=== PATIENT | female | born 1945 | race Caucasian/White ===

== ENCOUNTER → 2016-09-27 | Outpatient (CLI) | payer OTHER ==
--- NOTE | 2016-09-27 12:36 | DX ---
Chest, Two Views at 1108 hours History: J 18.9, pneumonia. Comparison: September 12, 2016 Findings: Cardiac silhouette is within normal range. Interval improvement in right lower lobe opacity since recent study consistent with resolving pneumonia with some residual patchy opacities noted in both lower lobes. Surgical clips in the left breast. Tortuous thoracic aorta. No pleural effusion or pneumothorax. Mild stable midthoracic compression fracture. IMPRESSION: 1. Resolving right lower lobe pneumonia. 2. Recommend follow-up in one month. 3. Mild stable midthoracic compression fracture. Consider DEXA bone scan evaluation for osteoporosis if clinically indicated.
== END ==
LOC: FIMAGING 11:03
PROVIDERS: ATTEND Internal Medicine
DX: J18.9 Pneumonia, unspecified organism (principal)

== ENCOUNTER → 2016-10-29 | Outpatient (CLI) | payer OTHER | LOC: BMCIMAGING 14:17 | PROVIDERS: ATTEND Internal Medicine | DX: J18.9 Pneumonia, unspecified organism (principal) ==

== ENCOUNTER → 2017-03-08 | Outpatient (CLI) | payer OTHER | LOC: FIMAGING 10:33 | PROVIDERS: ATTEND Internal Medicine | DX: Z12.31 Encounter for screening mammogram for malignant neoplasm of breast (principal); Z85.3 Personal history of malignant neoplasm of breast; Z80.3 Family history of malignant neoplasm of breast | CPT/HCPCS: G0202 ==

== ENCOUNTER → 2017-08-17 | Outpatient (CLI) | payer OTHER | LOC: FIMAGING 09:31 | PROVIDERS: ATTEND Internal Medicine Hematology & Oncology | DX: Z13.820 Encounter for screening for osteoporosis (principal); M85.88 Other specified disorders of bone density and structure, other site; Z82.62 Family history of osteoporosis ==

== ENCOUNTER → 2018-07-02 | Outpatient (CLI) | payer OTHER | LOC: FIMAGING 10:52 | PROVIDERS: ATTEND Internal Medicine Hematology & Oncology | DX: N64.59 Other signs and symptoms in breast (principal); Z85.3 Personal history of malignant neoplasm of breast ==

== ENCOUNTER 2019-01-09 05:50 | Inpatient (IN) | payer OTHER ==
--- NOTE | 2018-12-24 10:01 | ASMTCMCOM ---
CM Note CM Note Notes: Received a call from Dr. Carty's office, #[phone]. Patient lives alone and has multiple stairs at home. She feels rehab may be the best option for her post surgery. Patient and dtrs have already looked into [facility]. Will initiate referral process when patient gets to floor after surgery. CM will follow. Plan: [facility]ely [facility] - [facility] Date Signed: 12/24/2018 10:01 AM Electronically Signed By:Africa Pagan RN
--- NOTE | 2019-01-08 20:57 | GHP ---
[f rep st] PREOP HISTORY AND PHYSICAL DATE OF PLANNED PROCEDURE: 01/09/2019 ADMISSION DIAGNOSIS: Osteoarthritis, right hip. PLANNED PROCEDURE: Right total hip arthroplasty through an anterior approach. HISTORY OF PRESENT ILLNESS: The patient is a 73-year-old female who has failed conservative manageme nt, and has severe osteoarthritis of the right hip. Decision has been made to proceed with a total h ip arthroplasty through an anterior approach. PRIOR MEDICAL HISTORY: Arthritis, cancer, depression, recurrent urinary tract infections. PAST SURGICAL HISTORY: Total knee arthroplasty in 2011 and 2015. MEDICATIONS: Metformin 1000 mg b.i.d., pravastatin 10 mg, trazodone 50 mg, zolpidem 5 mg. ALLERGIES: No known drug allergies. SOCIAL HISTORY: Former smoker. Retired. Occasional alcohol use. Lives alone here in town. REVIEW OF SYSTEMS: Negative for chest pain or shortness of breath. Otherwise, review of systems unr emarkable. PHYSICAL EXAM: VITAL SIGNS: She is 5 feet 8 inches tall, weighs 180 pounds. Blood pressure is 116/ 62, heart rate is 68, respiratory rate 16 on room air. GENERAL: Alert and oriented x3. HEENT: Nor mocephalic, atraumatic. Extraocular muscles are intact. NECK: Supple. There is no lymphadenopathy . No JVD. CHEST: Clear to auscultation. CARDIOVASCULAR: Regular rate and rhythm. ABDOMEN: Soft , nontender, nondistended. EXTREMITIES: Focusing on the right hip leg, lengths are approximately eq ual. She has full extension of the hip, 100 degrees of flexion, 10 degrees of internal rotation with groin pain, 20 degrees of external rotation, 20 degrees of abduction. Calf is soft. She has 5/5 mo tor strength throughout the right lower extremity. 2+ dorsalis pedis and posterior tibial pulses. IMAGING STUDIES: X-rays AP, pelvis and frog-leg lateral show severe osteoarthritis of the right hip. ASSESSMENT: Severe osteoarthritis, right hip. PLAN: I recommend proceeding with a total hip arthroplasty through an anterior approach. Risks and benefits including a 1% to 2% dislocation rate, possibility of blood clots and infection were all dis cussed. She understands these risks and wished to proceed. Preoperative paperwork was completed. Konstantin venegas will plan on surgery Saturday at [facility]. /[id number]/MODL
[2019-01-09] MEDS ORDERED: ceFAZolin 2 GM/DEXTROSE 100 ML IV ONE (06:05)
[2019-01-09] MEDS ORDERED: LR 1,000 ML IV ONE (06:27)
--- NOTE | 2019-01-09 06:51 | PDHPUP ---
History & Physical Update H&P update statement: This history and physical update is based on an assessment of the patient which was completed after admission or registration (within 24 hours), but prior to the surgery/procedure. H&P update: H&P reviewed & patient examined, no change in patient's condition since H&P completed
[2019-01-09] MEDS ORDERED: BUPIVACAINE/EPI 0.5% 30 ML SDV ONE (07:01)
[2019-01-09] MEDS ORDERED: MIDAZOLAM 2 MG/2 ML VIAL IVP ONE (07:03)
--- NOTE | 2019-01-09 07:03 | PDANEPAE ---
ANE History of Present Illness hip pain ANE Past Medical History - Cardiovascular History Hx Hypertension: No Hx Arrhythmias: No Hx Chest Pain: No Hx Coronary Artery / Peripheral Vascular Disease: No Hx CHF / Valvular Disease: No Hx Palpitations: No Cardiovascular History Comment: HL - Pulmonary History Hx COPD: No Hx Asthma/Reactive Airway Disease: No Hx Recent Upper Respiratory Infection: No Hx Oxygen in Use at Home: No Hx Sleep Apnea: Yes Sleep Apnea Screening Result - Last Documented: Positive Pulmonary History Comment: wing positive uses cpap- instructed pt to bring to hospital - Neurologic History Hx Cerebrovascular Accident: No Hx Seizures: No Hx Dementia: No - Endocrine History Hx Diabetes: Yes Hypothyroid: No Hyperthyroid: No Obesity: yes, mild Endocrine History Comment: pre-diabetic: on metformin - Renal History Hx Renal Disorders: No - Liver History Hx Hepatic Disorders: No - Neurological & Psychiatric Hx Hx Neurological and Psychiatric Disorders: Yes Neurological / Psychiatric History Comment: insomnia. anxiety. depression - Cancer History Hx Cancer: Yes Cancer History Comment: breast ca in 2012 with lumpectomy. 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 left breast lumpectomy with shey 02/19/13. left tka with steven. 10/09/11. RTKA. breast biopsy 2018 ANE Review of Systems Review of systems is: negative Review of Systems: - Exercise capacity METS (RN): 4 METS ANE Patient History - Allergies Allergies/Adverse Reactions: atorvastatin calcium [From Lipitor] Allergy (Severe, Verified 01/07/19 10:28) MUSCLE CRAMPING - Home Medications Home medications: home medication list seen and reviewed Home Medications: Ergocalciferol [Vitamin D2 (*)] 50,000 unit PO HE 01/01/19 [Last Taken 12/31/18] Fluticasone Nasal [Flonase Nasal [place] (RX)] 1 sprays NASAL DAILY PRN 01/01/19 [ Last Taken 01/09/19] LORazepam [Ativan (*)] 0.5 mg PO DAILY PRN 01/01/19 [Last Taken 01/08/19] Meloxicam 7.5 mg PO BID 01/01/19 [Last Taken 01/06/19] Vortioxetine Hydrobromide [Brintellix] 10 mg PO DAILY 01/01/19 [Last Taken 01/08] Zolpidem Tartrate [Ambien 5MG (*)] 5 mg PO HS 01/01/19 [Last Taken 01/07/19] traZODone [traZODONE 50MG (*)] 200 mg PO HS 01/01/19 [Last Taken 01/08/19] IMODIUM A-D 01/09/19 [Last Taken 01/09/19 05:00] - NPO status NPO Status: no food or drink >8 hours NPO Since - Liquids (Date): 01/09/19 NPO Since - Liquids (Time): 05:00 NPO Since - Solids (Date): 01/08/19 NPO Since - Solids (Time): 22:00 - Anes Hx Anes Hx: no prior problems - Smoking Hx Smoking Status: Former smoker - Alcohol Use Alcohol Use: None - Family Anes Hx Family Anes Hx: none Family Hx Anesthesia Complications: none ANE Labs/Vital Signs - Vital Signs Blood Pressure: 128/63 Heart Rate: 80 Respiratory Rate: 15 O2 Sat (%): 93 Height: 170.18 cm Weight: 88.451 kg ANE Physical Exam - Airway Neck exam: FROM Mallampati Score: Class 2 Mouth exam: normal dental/mouth exam - Pulmonary Pulmonary: no respiratory distress, clear to auscultation - Cardiovascular Cardiovascular: regular rate and rhythym, no murmur, rub, or gallop - ASA Status ASA Status: III ANE Anesthesia Plan Anesthesia Plan: spinal
[2019-01-09] MEDS ORDERED: PROPOFOL/EMULSION 500 MG/50 ML BOTTLE IV ONE (07:05)
[2019-01-09] MEDS ORDERED: BUPIVACAINE/DEXTROSE 7.5MG/ML 2 ML SPINAL AMP SP ONE (07:07)
[2019-01-09] MEDS ORDERED: ePHEDrine SULFATE 25 MG/5 ML SYR ONE (08:29)
[2019-01-09] MEDS ORDERED: PHENYLEPHRINE HCL 100 MCG/ML SYR ONE (08:29)
[2019-01-09] MEDS ORDERED: fentaNYL 100 MCG/2 ML INJ IVP PRN (08:37)
[2019-01-09] MEDS ORDERED: LR 500 ML IV PRN (08:37)
[2019-01-09] MEDS ORDERED: ONDANSETRON 4 MG/2 ML VIAL IVP PRN ×2 (08:37→08:46)
[2019-01-09] MEDS ORDERED: NALOXONE HCL 0.4 MG/ML INJ IVP PRN (08:37)
[2019-01-09] MEDS ORDERED: LABETALOL HCL 5 MG/ML 20 ML MDV IVP PRN (08:37)
--- NOTE | 2019-01-09 08:37 | POSTANESTH ---
Post Anesthetic Evaluation Cardiovascular Status: Normal, Stable Respiratory Status: Normal, Stable Level of Consciousness/Mental Status: Can Participate in Eval Pain Control: Adequate, Prn Tx Ordered Nausea/Vomiting Control: Adequate, Prn Tx Ordered Complications Possibly Related to Anesthesia: None Noted
[2019-01-09] MEDS ORDERED: PROPOFOL 200 MG/20 ML VIAL ONE (08:40)
[2019-01-09] MEDS ORDERED: KETOROLAC 30 MG/1 ML SDV ONE (08:41)
[2019-01-09] MEDS ORDERED: BISACODYL 10 MG SUPP PR PRN (08:46)
[2019-01-09] MEDS ORDERED: ONDANSETRON DISINTEGRATING 4 MG TAB PO PRN (08:46)
[2019-01-09] MEDS ORDERED: PROMETHAZINE HCL 25 MG/ML INJ IVP PRN (08:46)
[2019-01-09] MEDS ORDERED: LACTULOSE 20 GM/30 ML UDCUP PO PRN (08:46)
[2019-01-09] MEDS ORDERED: POLYETHYLENE GLYCOL 3350 17 GM PKT PO PRN (08:46)
[2019-01-09] MEDS ORDERED: DIPHENOXYLATE/ATROPINE LOMOTIL 1 TAB PO PRN (08:46)
[2019-01-09] MEDS ORDERED: PROMETHAZINE HCL 25 MG SUPPR PR PRN (08:46)
[2019-01-09] MEDS ORDERED: METOCLOPRAMIDE 10 MG/2 ML VIAL IVP PRN (08:46)
[2019-01-09] MEDS ORDERED: diphenhydrAMINE 25 MG CAP PO PRN (08:46)
[2019-01-09] MEDS ORDERED: CYCLOBENZAPRINE 10 MG TAB PO PRN (08:46)
[2019-01-09] MEDS ORDERED: MAGNESIUM HYDROXIDE 30 ML UDCUP PO PRN (08:46)
[2019-01-09] MEDS ORDERED: LORazepam 0.5 MG TAB PO PRN (08:53)
--- NOTE | 2019-01-09 08:55 | POSTOPPROG ---
Post Op Note Date of Operation: 01/09/19 Surgeon: Byron Carty Fire Pot Operator: gosia connelly Anesthesiologist: Lisseth Anesthesia: Spinal Pre-op Diagnosis: OA RT hip Post-op Diagnosis: same Procedure: RT LAUREN via ant approach Findings: severe OA Inf/Abcess present in the surg proc area at time of surgery?: No EBL: 100-500 (200 ml) Complications: none
[2019-01-09] MEDS ORDERED: LR 1,000 ML IV SCH (09:00)
--- NOTE | 2019-01-09 09:12 | GOP ---
[f rep st] OPERATIVE REPORT DATE OF OPERATION: 01/09/2019 SURGEON: Byron Carty MD FLORAL ARRANGER: Garret Michelle. ANESTHESIA: Spinal. ANESTHESIOLOGIST: Dr. Montanez. PREOPERATIVE DIAGNOSIS: Osteoarthritis, right hip. POSTOPERATIVE DIAGNOSIS: Osteoarthritis, right hip. PROCEDURE PERFORMED: Right total hip arthroplasty through an anterior approach. FINDINGS: ESTIMATED BLOOD LOSS: 200 mL. INDICATIONS: The patient is a 73-year-old female with worsening right hip pain. Decision made to pr oceed with a total hip arthroplasty through an anterior approach. DESCRIPTION OF PROCEDURE: After an appropriate informed consent was obtained, the patient was taken to the operating room and placed supine on the operating table. Time-out was performed. Patient was identified, correct site was identified, matched with the radiographs available in the room. Follow ing a spinal anesthetic, she was positioned on the OR table with the right leg supported by the arch table, left leg supported in a well-padded well leg neff. We brought in fluoroscopy and templated off initial imaging, which showed leg lengths to be equal. Right hip was then prepped and draped in the usual sterile fashion. I made a standard anterior incision. Bleeding was controlled with electr ocautery. The fascia overlying the TFL was incised and bluntly dissected into the anterior interval, identifying the femoral circumflex vessels and cauterizing them with the Aquamantys device. Then, u sing a Mejias elevator, I elevated the soft tissues off the anterior aspect of the hip capsule, placed retractors around the superior and inferior aspect of the hip capsule and excised the anterior hip ca psule. Using an oscillating saw, I made a femoral neck cut and removed the head and neck. I placed a retractor on the superior and inferior aspect of the acetabulum and removed remaining labrum, as we ll as superior bone spurs. We then measured the head to approximately 53 mm and started reaming at a 52. Reamed up sequentially to a 58 reamer, which gave us good remaining medial wall and stability o f the reamer. We then trialed a 58 and placed our final 58 cup, tapped in place, tapped our neutral liner and locked it in place. We then turned our attention to the femur. Externally rotated the fem ur to 90 degrees, removed remaining posterior capsule and bone on the femoral neck. We then extended the hip to the floor and adducted 30 degrees. Using our femoral canal finding device, entered the f emoral canal and broached up to a size 5 with good rotational stability. We then reduced the hip, tr ialing a 0 and a -2.5 mm head. The -2.5 mm head gave us better judaism of leg lengths. We confi rmed this with an AP fluoroscopic image. We then removed the trial implants, irrigated the canal and placed our final implant, tapping it in place and reducing the hip a final time. Final imaging was obtained which showed judaism of leg lengths, good positioning of the cup and stem. The wound wa s irrigated. The fascia overlying the TFL was closed with 0 Vicryl. I instilled 30 mL of 0.5% Fabiola ine with epinephrine into the joint capsule and around the surrounding tissues. Superficial layers c losed with 2-0 Vicryl. Skin was closed with a 3-0 Quill stitch in a subcuticular fashion. Steri-Str ips were applied to the skin. A sterile occlusive dressing was applied. The patient was awakened fr om anesthesia and taken to the recovery room in satisfactory condition. There were no immediate intr aoperative complications. Garret Michelle's assistance was required throughout the entire case. COMPLICATIONS: None. DRAINS: None. IMPLANTS USED: A Fan Trident II size 58 acetabular shell with a neutral poly liner, a size 5 Acc olate II 127-degree femoral stem with a -2.5 mm ceramic head. /[id number]/MODL
--- NOTE | 2019-01-09 11:39 | PDMN ---
Medical Necessity Medical necessity: [facility] [place] [place]PT only OP: R LAUREN AUTH #[id number] FOR CPT 61585 INPT
[2019-01-09] MEDS: SENNOSIDES/DOCUSATE SODIUM TAB PO SCH ×2 (11:53→22:13)
[2019-01-09] MEDS: KETOROLAC 15 MG/1 ML SDV IVP SCH ×2 (12:07→17:40)
[2019-01-09] MEDS: Vortioxetine Hydrobromide [Trintellix] 10 MG PO SCH (14:36)
[2019-01-09] MEDS: Vortioxetine Hydrobromide [Trintellix] 5 MG PO SCH (14:38)
[2019-01-09] MEDS: ACETAMINOPHEN 325 MG TAB PO SCH ×2 (15:12→21:25)
[2019-01-09] MEDS: ceFAZolin 2 GM/DEXTROSE 100 ML IV SCH ×2 (15:15→21:25)
--- NOTE | 2019-01-09 15:19 | SOAPPROG ---
SOAP Progress Note Assessment/Plan: Assessment: s/p right LAUERN, anterior approach - procedure earlier today Plan: Begin d/c planning - patient states she will be going to [facility] Continue VTE ppx - SCDs, CATHERINE hose, Xarelto x 21 days Continue oral pain medication - Tylenol, Flexeril, Celebrex, Oxycodone Continue PT/OT efforts - anterior LAUREN precautions, WBAT Subjective: Patient states she has pain primarily in the right buttock, not so much in the groin region. She denies pain, numbness or tingling radiating down the lower extremities. Otherwise she is feeling ok. Patient reports that she will be going to SNF once she is discharged. Patient denies SOB, CP, fever, chills. Objective: Vital Signs Temp Pulse Resp BP Pulse Ox 37.0 C 85 17 110/57 L 95 01/09/19 15:08 01/09/19 15:08 01/09/19 15:08 01/09/19 15:08 01/09/19 15:08 01/08/19 01/09/19 01/10/19 05:59 05:59 05:59 Intake Total 550 Output Total 150 Balance 400 Patient resting comfortably in bed, no acute distress. RLE: Wound dressings are clean, dry and intact. Skin intact, no signs of infection. Tenderness over the gluteus jose and medius muscles. Lower leg compartments are soft and nontender. She can actively DF and PF right foot and great toe against resistance. Grossly NVI distally. ICD10 Worksheet Patient Problems: Problems Problem Status Onset Unilateral primary osteoarthritis, right hip Acute Osteoarthritis, knee Acute
[2019-01-09] MEDS: metFORMIN HCL 500 MG TAB PO SCH (17:40)
[2019-01-09] MEDS: oxyCODONE IR 5 MG TAB PO PRN (21:25)
[2019-01-09] MEDS: TEMAZEPAM 15 MG CAP PO PRN (22:13)
[2019-01-09] MEDS: traZODone 50 MG TAB PO SCH (22:13)
[2019-01-09] MEDS: FAMOTIDINE 20 MG TAB PO SCH (22:14)
[2019-01-10] MEDS: KETOROLAC 15 MG/1 ML SDV IVP SCH ×2 (00:05→06:17)
[2019-01-10] MEDS: ACETAMINOPHEN 325 MG TAB PO SCH ×4 (03:30→22:48)
[2019-01-10] MEDS: metFORMIN HCL 500 MG TAB PO SCH ×2 (07:59→17:36)
[2019-01-10] MEDS: SENNOSIDES/DOCUSATE SODIUM TAB PO SCH ×2 (08:03→22:49)
[2019-01-10] MEDS: FAMOTIDINE 20 MG TAB PO SCH ×2 (08:57→22:48)
[2019-01-10] MEDS: RIVAROXABAN 10 MG TAB PO SCH (08:57)
[2019-01-10] MEDS: Vortioxetine Hydrobromide [Trintellix] 5 MG PO SCH (08:58)
[2019-01-10] MEDS: Vortioxetine Hydrobromide [Trintellix] 10 MG PO SCH (08:58)
--- NOTE | 2019-01-10 10:27 | SOAPPROG ---
SOGINGER Progress Note Assessment/Plan: Assessment: Plan: 01/10/19 10:26 POD # 1 RT LAUREN PT/OT xarelto x 21 days Subjective: feeling good slept o/n pain controlled Objective: dressing c/d/i calf soft leg lengths equal 5/5 df/pf Vital Signs Temp Pulse Resp BP Pulse Ox 36.8 C 79 16 113/75 91 L 01/10/19 08:11 01/10/19 08:11 01/10/19 08:11 01/10/19 08:11 01/10/19 08:11 Laboratory Results 01/10/19 05:07 01/09/19 01/10/19 01/11/19 05:59 05:59 05:59 Intake Total 1450 Output Total 550 Balance 900 ICD10 Worksheet Patient Problems: Problems Problem Status Onset Unilateral primary osteoarthritis, right hip Acute Osteoarthritis, knee Acute
--- NOTE | 2019-01-10 15:22 | ASMTCMCOM ---
CM Note CM Note Notes: Referral sent to [facility] today. CM will follow. Date Signed: 01/10/2019 03:21 PM Electronically Signed By:Sabi Garcia LCSW
[2019-01-10] MEDS: TEMAZEPAM 15 MG CAP PO PRN (22:47)
[2019-01-10] MEDS: traZODone 50 MG TAB PO SCH (22:47)
[2019-01-10] MEDS: oxyCODONE IR 5 MG TAB PO PRN (22:47)
[2019-01-11] MEDS: ACETAMINOPHEN 325 MG TAB PO SCH ×4 (03:11→21:54)
--- NOTE | 2019-01-11 08:24 | SOAPPROG ---
PARKER Progress Note Assessment/Plan: Assessment: Plan: 01/10/19 10:26 POD # 1 RT LAUREN PT/OT xarelto x 21 days 01/11/19 08:23 POD#2 LAUREN RT doing well with PT SNF vs home with HH PT Saturday Subjective: doing well, pain controlled working with PT Objective: dressingh changed leg lengths equal calf soft Vital Signs Temp Pulse Resp BP Pulse Ox 37.3 C 98 17 138/66 H 95 01/11/19 08:00 01/11/19 08:00 01/11/19 08:00 01/11/19 08:00 01/11/19 08:00 Laboratory Results 01/11/19 05:00 01/10/19 01/11/19 01/12/19 05:59 05:59 05:59 Intake Total 1450 400 Output Total 550 Balance 900 400 ICD10 Worksheet Patient Problems: Problems Problem Status Onset Unilateral primary osteoarthritis, right hip Acute Osteoarthritis, knee Acute
[2019-01-11] MEDS: metFORMIN HCL 500 MG TAB PO SCH ×2 (09:35→17:34)
[2019-01-11] MEDS: RIVAROXABAN 10 MG TAB PO SCH (09:36)
[2019-01-11] MEDS: Vortioxetine Hydrobromide [Trintellix] 5 MG PO SCH (09:36)
[2019-01-11] MEDS: FAMOTIDINE 20 MG TAB PO SCH ×2 (09:36→21:54)
[2019-01-11] MEDS: Vortioxetine Hydrobromide [Trintellix] 10 MG PO SCH (09:36)
[2019-01-11] MEDS: SENNOSIDES/DOCUSATE SODIUM TAB PO SCH ×2 (10:10→21:55)
--- NOTE | 2019-01-11 10:43 | ASMTCMCOM ---
MARI Note CM Note Notes: Patient is discharging tomorrow and would like to go before noon so her daughter can accompany her before she leaves in the afternoon. Spoke with [facility] admissions and requested a 10:30 AM discharge to their facility. They will get back to me today to let me know if they can accomodate. CM will follow. Date Signed: 01/11/2019 10:42 AM Electronically Signed By:Sabi Garcia LCSW
--- NOTE | 2019-01-11 13:16 | ASMTCMCOM ---
CM Note CM Note Notes: [facility] insurance auth for the patient yet, though it has been started. They have made a note that they will try to get it in the morning on Saturday so the patient can discharge in the morning if possible. CM will need to check in early Saturday to facilitate an early discharge. CM will follow. Date Signed: 01/11/2019 01:14 PM Electronically Signed By:Sabi Garcia LCSW
[2019-01-11] MEDS: TEMAZEPAM 15 MG CAP PO PRN (21:54)
[2019-01-11] MEDS: traZODone 50 MG TAB PO SCH (21:54)
[2019-01-12] MEDS: ACETAMINOPHEN 325 MG TAB PO SCH ×2 (03:26→08:27)
[2019-01-12 08:20] VITALS: BP 112/61
[2019-01-12] MEDS: metFORMIN HCL 500 MG TAB PO SCH (08:25)
[2019-01-12] MEDS: SENNOSIDES/DOCUSATE SODIUM TAB PO SCH (08:28)
[2019-01-12] MEDS: FAMOTIDINE 20 MG TAB PO SCH (08:29)
[2019-01-12] MEDS: Vortioxetine Hydrobromide [Trintellix] 10 MG PO SCH (08:30)
[2019-01-12] MEDS: RIVAROXABAN 10 MG TAB PO SCH (08:30)
[2019-01-12] MEDS: Vortioxetine Hydrobromide [Trintellix] 5 MG PO SCH (08:32)
--- NOTE | 2019-01-12 09:58 | SOAPPROG ---
SOAP Progress Note Assessment/Plan: Assessment: s/p right LAUREN, anterior approach - POD 3 Plan: Continue d/c planning - patient states she will be going to [facility], waiting for insurance authorization Continue VTE ppx - SCDs, CATHERINE hose, Xarelto x 21 days Continue oral pain medication - Tylenol, Celebrex, Oxycodone Continue PT/OT efforts - anterior LAUREN precautions, WBAT Subjective: Patient states she is feeling very good, she has no significant pain at this time. She is waiting for her insurance to authorize the SNF. She denies SOB, CP , fever, chills. No new major complaints at this time. Objective: Vital Signs Temp Pulse Resp BP Pulse Ox 36.8 C 93 16 112/61 93 01/12/19 08:00 01/12/19 08:00 01/12/19 08:00 01/12/19 08:00 01/12/19 08:00 Laboratory Results 01/11/19 05:00 01/11/19 01/12/19 01/13/19 05:59 05:59 05:59 Intake Total 400 1250 425 Balance 400 1250 425 Patient sitting comfortably in her chair, no acute distress. RLE: Ecchymosis noted about the anterolateral aspect of the right hip. Skin intact. No signs of infection. Mepilex is clean, dry and intact. Lower leg compartments are soft and nontender. Negative Homans sign bilaterally. She can actively DF and PF her right foot and great toe against resistance. Grossly NVI distally. ICD10 Worksheet Patient Problems: Problems Problem Status Onset Unilateral primary osteoarthritis, right hip Acute Osteoarthritis, knee Acute
--- NOTE | 2019-01-12 10:05 | PDIAF ---
- Diagnosis Diagnosis: Right hip DJD Code Status: Full Code - Medication Management Discharge Medications: electronically signed and located in the Home Medication List. - Orders Services needed: Physical Therapy, Occupational Therapy Diet Recommendation: no restrictions on diet Diet Texture: Regular Texture Diet Additional Instructions: WBAT on right lower extremity Anterior total hip precautions Oxycodone, Tylenol for pain, Xarelto x 21 days for VTE ppx Keep wound dressings clean, dry and intact. Keep dressing covered while showering. Do not submerge/take a bath Follow up in 2-[address] Carty's office - Follow Up Care Current Providers and Referrals: Jes Vigil MD [Primary Care Provider] - Byron Carty MD [Medical Doctor] - follow up in 2 weeks (Follow up in 2-[address] Carty)
--- NOTE | 2019-01-12 10:50 | PDDCSUM ---
Discharge Summary Discharge Summary: ADMISSION DIAGNOSIS: Right hip severe degenerative arthritis DISCHARGE DIAGNOSIS: Right hip severe degenerative arthritis OPERATION PERFORMED: January 09, 2019 Right total hip arthroplasty, anterior approach POSTOPERATIVE COMPLICATIONS: None CONDITION ON DISCHARGE: Improved HPI: The patient is a 73 year old female who has end-stage arthritis of her right hip. Clinical and radiographic features are consistent with this. Patient has failed attempts at conservative management, therefore, recommended operative right total hip replacement. DESCRIPTION OF HOSPITAL COURSE: The patient was admitted to the hospital on the morning of surgery and underwent a right total hip arthroplasty, anterior approach. Postoperatively, patient was treated with multimodal DVT prophylaxis, including Xarelto, SCDs and CATHERINE hose. Patient was seen by PT and made good progress with ambulation and stairs. The patients most recent H&H was 11.3/ 34.8. Patient was able to void spontaneously. At the time of discharge, patient was afebrile, wound was clean and dry. Patient is walking with a walker. DISPOSITION: The patient is discharged to [facility]. Patient may progress to full weightbearing on the right lower extremity as tolerated. She will continue to take Xarelto until she is 21 days post-operative. Patient may continue to take Tylenol and oxycodone for pain control and Zofran for nausea. The patient will be seen by Dr. Escobedo office in approximately 2-3 weeks. If there are any problems, patient is to call Dr. Escobedo office.
--- NOTE | 2019-01-12 14:01 | ASMTCMCOM ---
CM Note CM Note Notes: [facility] for [facility]. Orders sent in [employer]. KIKE Bunch called report. Pt was picked up by [facility] at 11:15. Date Signed: 01/12/2019 01:59 PM Electronically Signed By:PEDRITO Marie
--- NOTE | 2019-01-12 14:46 | ASDISCHSUM ---
Discharge Information Plan Status:SNF Medically Cleared to Leave: Discharge Date:01/12/2019 11:24 AM CM D/C Disposition: ADT D/C Disposition:Nursing Home Facility Projected Discharge Date:01/12/2019 11:00 AM Transportation at D/C: Discharge Delay Reason: Follow-Up Date:01/12/2019 11:00 AM Discharge Slot: Final Diagnosis: Placement Information Referral Type:*Long-Term/SNF Referral ID:[id number] Provider Name:[facility] Address 1:[address] Address 2: City:[place] Selection Factors: State:[place] Patient Contact Information Contact Name:GABRIELLA Relationship:Daughter Address: Work Phone: [facility] Phone: [facility]/Zip Code:[place] Email: Financial Information Financial Class:Medicare Advantage Plans Primary Plan Desc:[facility] ADVANTAGE PLANS Primary Plan Number:[id number] Secondary Plan Desc: Secondary Plan Number: Assessment Information [facility] CM Progress Note CM Note CM Note Notes: Received a call from Dr. Carty's office, #[phone]. Patient lives alone and has multiple stairs at home. She feels rehab may be the best option for her post surgery. Patient and dtrs have already looked into [facility]. Will initiate referral process when patient gets to floor after surgery. CM will follow. Plan: Likely [facility] - [facility] Date Signed: 12/24/2018 10:01 AM Electronically Signed By:Africa Pagan RN [facility] CM Progress Note CM Note CM Note Notes: Referral sent to [facility] today. CM will follow. Date Signed: 01/10/2019 03:21 PM Electronically Signed By:Sabi Garcia LCSW [facility] CM Progress Note CM Note CM Note Notes: Patient is discharging tomorrow and would like to go before noon so her daughter can accompany her before she leaves in the afternoon. Spoke with [facility] admissions and requested a 10:30 AM discharge to their facility. They will get back to me today to let me know if they can accomodate. CM will follow. Date Signed: 01/11/2019 10:42 AM Electronically Signed By:Sabi Garcia LCSW [facility] CM Progress Note CM Note CM Note Notes: Spoke with [facility] who states they have not gotten insurance auth for the patient yet, though it has been started. They have made a note that they will try to get it in the morning on Saturday so the patient can discharge in the morning if possible. CM will need to check in early Saturday to facilitate an early discharge. CM will follow. Date Signed: 01/11/2019 01:14 PM Electronically Signed By:Sabi Garcia LCSW [facility] CM Progress Note CM Note CM Note Notes: This morning [facility] received insurance auth and pt is medically stable for d/c. Orders sent in [employer]. KIKE Bunch called report. Pt was picked up by [facility] at 11:15. Date Signed: 01/12/2019 01:59 PM Electronically Signed By:PEDRITO Marie Intervention Information Intervention Type:*IM-Signed Date of Service:01/12/2019 09:49 AM Patient Type:Inpatient Staff Member:Adelaida Carlson Hours: Discipline: Severity: Comment:
== END 2019-01-12 11:24 | DRG 470 ==
LOC: F3N 05:50
PROVIDERS: ADMIT Orthopaedic Surgery; ATTEND Orthopaedic Surgery
PROC: 0SR904A Replacement of Right Hip Joint with Ceramic on Polyethylene Synthetic Substitute, Uncemented, Open Approach (ICD-10-PCS; principal; 2019-01-09 07:15)
DX: M16.11 Unilateral primary osteoarthritis, right hip (principal); E55.9 Vitamin D deficiency, unspecified; R73.03 Prediabetes; F32.9 Major depressive disorder, single episode, unspecified; G47.33 Obstructive sleep apnea (adult) (pediatric); G47.09 Other insomnia; E66.09 Other obesity due to excess calories; Z68.30 Body mass index [BMI] 30.0-30.9, adult; K58.0 Irritable bowel syndrome with diarrhea; Z87.891 Personal history of nicotine dependence; Z85.3 Personal history of malignant neoplasm of breast; Z96.653 Presence of artificial knee joint, bilateral
CPT/HCPCS: 97110-GP; 97116-GP; 97161-GP; 97165-GO; 97530-GP; 97535-GO; J0690; J1885; J2250; J2370; J2704